=== PATIENT | male | born 1970 | race Caucasian/White ===

== ENCOUNTER 2022-03-26 21:39 | Emergency (ER) | payer OTHER ==
[~2022-03-26] VITALS: Ht 172.7 cm; Wt 75.9 kg
[~2022-03-26 21:39] MED LIST: (None)3.5 GM OP; AMOXICILLIN500 MG PO; BACTRIM DS1 TAB OR; BACTRIM DS1 TAB PO; CEPHALEXIN500 MG PO; CIPRO500 MG OR; GENTAMICIN15 ML/BTL OP; LORTAB 10-325 M1 TAB PO; LORTAB 5-325 MG1 TAB PO; NAPROSYN500 MG OR; ULTRAM50 MG OR
[2022-03-26 21:44] VITALS: BP 137/89
[2022-03-26 22:01] VITALS: BP 108/74
[2022-03-26 22:15] VITALS: BP 116/72
[2022-03-26] MEDS ORDERED: GENTAMICIN SULF5 ML OS (22:19)
[2022-03-26] MEDS ORDERED: (None)3.5 GM OS (22:19)
[2022-03-26 22:30] VITALS: BP 116/80
[2022-03-26 22:40] VITALS: BP 116/80
== END 2022-03-26 22:41 | disposition home or self-care (01) | DRG 125 ==
LOC: ED 21:39
DX: H10.9 Unspecified conjunctivitis (principal)